=== PATIENT | male | born 1980 | race Caucasian/White ===

== ENCOUNTER 2025-05-20 03:47 | Emergency (ER) | payer SELFPAY ==
[~2025-05-20] VITALS: Ht 185.4 cm; Wt 789.3 kg
[2025-05-20 04:13] VITALS: PULSE 90; RESP 20; TEMP 98.7; O2SAT 99
[2025-05-20] MEDS ORDERED: CEPHALEXIN500 MG PO (04:29)
[2025-05-20] MEDS: KETOROLAC TROMETHAMINE 60 MG/2 ML VIAL IM STA (04:33)
== END 2025-05-20 04:34 | disposition home or self-care (01) ==
LOC: ER 03:50
DX: S01.81XA Laceration without foreign body of other part of head, initial encounter (principal); Y04.0XXA Assault by unarmed brawl or fight, initial encounter; Y92.89 Other specified places as the place of occurrence of the external cause
CPT/HCPCS: 12013; 99283; J1885